=== PATIENT | female | born 1995 | race American Indian/Alaskan Native ===

== ENCOUNTER 2018-05-07 09:27 | Emergency (ER) | payer SELFPAY ==
[2018-05-07 09:38] VITALS: BMI 23.0
[2018-05-07 09:52] VITALS: BP 110/73; PULSE 87; RESP 17; TEMP 98
[2018-05-07 11:21] VITALS: O2SAT 97
--- NOTE | 2018-05-07 21:47 | ED PDOC ---
Arrival/HPI - General Chief Complaint: ENT Problem Time Seen by Provider: 05/07/18 09:45 Historian: Patient - History of Present Illness Narrative History of Present Illness (Text): 22 year old 6-week by LMP female presents to the emergency department for evaluation of tonsillar swelling x 6 hours. Patient was treated for strep throat by [facility] [place] 2 weeks ago with Penicillin and steroids, which she took as prescribed. Last day of antibiotic Saturday. Medications completely resolved her symptoms of throat pain and lymphadenopathy. Patient states she looked in the mirror today and thought she saw some tonsillar swelling and exudate. Denies throat pain. States she is just worried that the infection is coming back. 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 LMP 03/26/18. Denies fevers, chills, sore throat, headache, ear pain, cough, sinus congestion, abdominal pain, N/V, or any other associated symptoms. Past Medical History - Infectious Disease Hx of Infectious Diseases: None - Psychiatric Hx Substance Use: No Family/Social History - Physician Review Nursing Documentation Reviewed: Yes Family/Social History: No Known Family HX Smoking Status: Never Smoked Hx Alcohol Use: No Hx Substance Use: No Allergies/Home Meds Allergies/Adverse Reactions: Allergies No Known Allergies Allergy (Verified 05/07/18 09:52) Physical Exam Vital Signs Reviewed: Yes Vital Signs Temp Pulse Resp BP Pulse Ox 05/07/18 10:56 98.0 F 87 17 110/73 97 05/07/18 09:51 98.0 F 87 17 110/73 100 Temperature: Afebrile Blood Pressure: Normal Pulse: Regular Respiratory Rate: Normal Appearance: Positive for: Well-Appearing, Non-Toxic, Comfortable Pain Distress: None Mental Status: Positive for: Alert and Oriented X 3 - Systems Exam Head: Present: Atraumatic, Normocephalic Pupils: Present: PERRL Extroacular Muscles: Present: EOMI Conjunctiva: Present: Normal Ears: Present: Normal, NORMAL TM Mouth: Present: Moist Mucous Membranes Pharnyx: Present: TONSILS ENLARGED (mildly bilaterally). No: ERYTHEMA, EXUDATE, Peritonsilar Swelling, Uvular Deviation, Muffled/Hoarse Voice, Soft Palate/Uvular Edema Nose (External): Present: Atraumatic Nose (Internal): Present: Moist Neck: Present: Normal Range of Motion. No: Meningeal Signs, Lymphadenopathy Respiratory/Chest: Present: Clear to Auscultation, Good Air Exchange. No: Respiratory Distress, Accessory Muscle Use Cardiovascular: Present: Regular Rate and Rhythm, Normal S1, S2, Peripheal Pulses Present. No: Murmurs Abdomen: Present: Normal Bowel Sounds. No: Tenderness, Distention, Peritoneal Signs, Rebound, Guarding Back: Present: Normal Inspection. No: CVA Tenderness Upper Extremity: Present: Normal Inspection, Normal ROM, Neurovascularly Intact, Capillary Refill < 2s. No: Cyanosis, Edema Lower Extremity: Present: Normal Inspection, NORMAL PULSES. No: Edema Neurological: Present: GCS=15, CN II-XII Intact, Speech Normal, Motor Func Grossly Intact, Normal Sensory Function, Gait Normal, Memory Normal Skin: Present: Warm, Dry, Normal Color. No: Rashes Lymphatic: No: Cervical Adenopathy Psychiatric: Present: Alert, Oriented x 3, Normal Insight, Normal Concentration, Normal Affect, Normal Mood Medical Decision Making ED Course and Treatment: Initial Plan: * Rapid Strep Strep negative Centor Criteria: Score 2 - 11-17% probability of Strep Pharyngitis. Shared decision making with patient resulted in decision to wait for pending throat culture secondary to lack of sore throat and recent course of antibiotics. Patient states she will followup with clinic and return if symptoms change or worsen. Case discussed with ED attending Dr. Arreola, who agrees with plan of care and disposition. Plan of care discussed with patient, and strict instructions given regarding prescriptions, importance of follow up, and signs to return to Emergency Department, to include abdominal pain, N/V, sore throat, headache, fevers, or any other new/worsening symptoms. Patient verbalizes understanding of discussion. Patient A&Ox3, ambulating with steady gait, stable for discharge home. - Lab Interpretations Lab Results: Lab Results 05/07/18 10:14: Grp A Beta Strep Ag Negative Disposition/Present on Arrival - Present on Arrival Any Indicators Present on Arrival: No History of DVT/PE: No History of Uncontrolled Diabetes: No Urinary Catheter: No History of Decub. Ulcer: No History Surgical Site Infection Following: None - Disposition Have Diagnosis and Disposition been Completed?: Yes Diagnosis: Swelling of tonsil Disposition: HOME/ ROUTINE Disposition Time: 10:50 Patient Plan: Discharge Condition: STABLE Discharge Instructions (ExitCare): Viral Pharyngitis Additional Instructions: Take vitamins as prescribed You will be called for any culture results Followup with clinic or PMD within 2 days Followup with OBGYN Return to ER for any new/worsening symptoms Prescriptions: Vit No.129/Iron/Folic [ One Daily Tablet] 1 each PO DAILY #90 tablet Referrals: [facility] [Outside] - [place] up [place] [facility] [place] - [facility]] - Follow up with primary Irasema Sky MD [Medical Doctor] - Follow up with primary Forms: navabi (Vietnamese), WORK NOTE
== END 2018-05-07 10:56 | disposition home or self-care (01) ==
LOC: ED 09:27 → MERGE 09:27 → ED 10:56
DX: J35.1 Hypertrophy of tonsils (principal)